=== PATIENT | male | born 1970 | race Caucasian/White ===

== ENCOUNTER 2018-09-14 22:08 | Observation (INO) | payer OTHER ==
[2018-09-14] MEDS ORDERED: fentaNYL 100 MCG/2 ML INJ IVP ONE (22:14)
[2018-09-14] MEDS ORDERED: TDAP ADULT 0.5 ML INJ (BOOSTRIX) IM ONE (22:14)
[2018-09-14] MEDS ORDERED: ONDANSETRON 4 MG/2 ML VIAL IVP ONE (22:14)
[2018-09-14] MEDS ORDERED: ceFAZolin 2 GM/DEXTROSE 100 ML IV ONE (22:15)
[2018-09-14] MEDS ORDERED: fentaNYL 100 MCG/2 ML INJ ONE (22:15)
--- NOTE | 2018-09-14 22:18 | EDPHY ---
H & P Time Seen by Provider: 09/14/18 22:16 HPI/ROS: HPI CHIEF COMPLAINT: Open tib-fib fracture. LTA HISTORY OF PRESENT ILLNESS: 48-year-old male, presents emergency room as a limited trauma activation. Patient had alcohol to drink this evening he tripped and slipped and fell down the bottom aspect of the stairs states he fell down 6 stairs. Did not strike his head he denies any head or neck pain he presents emergency room with an obvious open right tib-fib fracture. He denies any significant pain at this time. Received 100 mcg IV fentanyl prior to arrival. He arrives to EMS GCS 15, alert or x4, no acute distress denies any complaints except some mild right lower tib-fib pain. Patient denies any chest pain or shortness of breath, denies headache, denies neck pain, denies focal numbness or tingling. Past Medical History: No significant medical history Past Surgical History: No significant surgical history Social History: Visiting from [facility] Family History: Noncontributory ROS REVIEW OF SYSTEMS: 10 Systems were reviewed and negative with the exception of the elements mentioned in the history of present illness. Exam Constitutional appears well nontoxic no acute distress, GCS 15 triage nursing summary reviewed, vital signs reviewed, awake/alert. Eyes normal conjunctivae and sclera, EOMI, PERRLA. HENT head and neck atraumatic, normal inspection, atraumatic, moist mucus membranes, no epistaxis, neck supple/ no meningismus, no raccoon eyes. Respiratory clear to auscultation bilaterally, normal breath sounds, no respiratory distress, no wheezing. Cardiovascular rate normal, regular rhythm, no murmur, no edema, distal pulses normal. Gastrointestinal soft, non-tender, no rebound, no guarding, normal bowel sounds, no distension, no pulsatile mass. Genitourinary no CVA tenderness. Musculoskeletal : Right lower extremity: Obvious open tib-fib fracture distal aspect. Delayed cap refilly. Cooler foot, but still perfusing not dusky. 1+DP. no midline vertebral tenderness, no calf swelling, no tenderness of extremities , no meningismus, good pulses, neurovascularly intact. Skin pink, warm, & dry, no rash, skin atraumatic. Neurologic awake, alert and oriented x 3, AAOx3, moves all 4 extremities equally, motor intact, sensory intact, CN II-XII intact, normal cerebellar, normal vision, normal speech. Psychiatric normal mood/affect. Heme/Lymph/Immune no lymphadenopathy. Differential Diagnosis: Includes but is not limited to in a particular order open tib-fib, mechanical trip and fall, compartment syndrome, soft tissue injury Medical Decision Making: Plan for this patient x-ray right tib-fib, Ancef, tetanus, fentanyl, IV fluids, type and screen, blood work, chest x-ray. Re-evaluation: Spoke with Dr. Cobos at 10:20 p.m. Open tib-fib fracture on the right. He will come and see the patient immediately. Plan to go the OR. X-rays reviewed. Chest x-ray unremarkable X-ray of the right tib-fib shows spiral distal facture, proximal fibula fracture. Plan for patient to go the OR. Hold Orthopedics as been consult. IV Ancef ordered. IV Dilaudid for pain control Tetanus updated. Source: Patient, EMS Constitutional: Initial Vital Signs Temperature (C) 37.0 C 09/14/18 22:11 Heart Rate 88 09/14/18 22:11 Respiratory Rate 18 09/14/18 22:11 Blood Pressure 172/91 H 09/14/18 22:11 O2 Sat (%) 99 09/14/18 22:11 O2 Delivery Mode Nasal Cannula O2 (L/minute) 2 Allergies/Adverse Reactions: No Known Allergies Allergy (Verified 09/15/18 09:55) Home Medications: Medication Instructions Recorded NK [No Known Home Meds] 09/14/18 Enoxaparin [Lovenox 40 MG (*)] 40 mg SC DAILY 7 Days #7 syr 09/15/18 Hydrocodone/APAP 5/325 [[place]akeside 1 - 2 tab PO Q3HRS PRN #20 tab 09/15/18 5/325 (*)] oxyCODONE/APAP 5/325 [Percocet 1 - 2 tab PO Q3HRS PRN #20 tab 09/15/18 5/325 (*)] Medical Decision Making - Data Points Laboratory Results: Laboratory Results 09/14/18 22:40 09/14/18 22:40 Medications Given: Discontinued Medications Acetaminophen (Tylenol) 325 - 650 mg PO Q4HRS PRN PRN Reason: Pain, Mild/Fever, Can Take PO Stop: 03/14/19 02:11 Last Admin: 09/15/18 05:35 Dose: 650 mg Hydrocodone Bitart/Acetaminophen ([place]akeside 5/325) 1 - 2 tab PO Q3HRS PRN PRN Reason: Pain, Moderate Stop: 09/25/18 02:11 Last Admin: 09/15/18 16:12 Dose: 2 tab Bacitracin (Bacitracin Syringe) Confirm Administered Dose 450,000 units IRR .STK -MED ONE Stop: 09/15/18 00:47 Last Admin: 09/15/18 01:23 Dose: 150,000 units Diphtheria/Tetanus/Acell Pertussis (Boostrix) 0.5 ml IM .ONCE ONE Stop: 09/14/18 22:15 Last Admin: 09/14/18 22:30 Dose: 0.5 ml Enoxaparin Sodium (Lovenox) 40 mg SC DAILY [facility] Stop: 03/14/19 08:59 Last Admin: 09/15/18 13:43 Dose: 40 mg Fentanyl (Sublimaze) 100 mcg IVP EDNOW ONE Stop: 09/14/18 22:15 Last Admin: 09/14/18 22:15 Dose: 100 mcg Hydromorphone HCl (Dilaudid) 0.5 mg IVP EDNOW ONE Stop: 09/14/18 23:23 Last Admin: 09/14/18 23:23 Dose: 0.5 mg Cefazolin Sodium/Dextrose (Ancef) 100 mls @ 200 mls/hr IV EDNOW ONE PRN Reason: Protocol Stop: 09/14/18 22:44 Last Admin: 09/14/18 22:30 Dose: 100 mls Cefazolin Sodium/Dextrose (Ancef 1 Gm (Premix)) 50 mls @ 200 mls/hr IV Q8HRS DWIGHT PRN Reason: Protocol Stop: 09/15/18 14:14 Last Admin: 09/15/18 13:48 Dose: 50 mls Potassium Chloride/Dextrose/Sod Cl (D5w 1/2 Ns W/ 20 Kcl/L) 1,000 mls @ 125 mls /hr IV CONT DWIGHT Stop: 03/14/19 02:14 Last Admin: 09/15/18 03:27 Dose: 1,000 mls Ondansetron HCl (Zofran) 4 mg IVP EDNOW ONE Stop: 09/14/18 22:15 Last Admin: 09/14/18 22:30 Dose: 4 mg Departure - Departure Disposition: [facility] Inpatient Acute Clinical Impression: Tibia and fibula open fracture, right Qualifiers: Encounter type: initial encounter Open fracture type: open type I or II Qualified Code(s): S82.201B - Unspecified fracture of shaft of right tibia, initial encounter for open fracture type I or II; S82.401B - Unspecified fracture of shaft of right fibula, initial encounter for open fracture type I or II; S82.401B - Unspecified fracture of shaft of right fibula, initial encounter for open fracture type I or II Condition: Good
[2018-09-14 22:54] LABS: PLATELET COUNT 183 10^3/uL (150-400)
[2018-09-14 23:03] LABS: INR 1.01 (0.83-1.16); PROTIME(PATIENT) 13.5 SEC (12.0-15.0)
[2018-09-14] MEDS ORDERED: HYDROmorphONE/DILAUDID 1 MG/ML INJ ONE (23:20)
[2018-09-14] MEDS ORDERED: HYDROmorphONE/DILAUDID 1 MG/ML INJ IVP ONE (23:22)
--- NOTE | 2018-09-14 23:39 | PDGENHP ---
History and Physical History and Physical: spoke with ED spoke with OR films reviewed open tibia fx plan for washout and IM nail
--- NOTE | 2018-09-14 23:58 | PDANEPAE ---
ANE Past Medical History - Cardiovascular History Hx Hypertension: No Hx Arrhythmias: No Hx Chest Pain: No Hx Coronary Artery / Peripheral Vascular Disease: No Hx CHF / Valvular Disease: No Hx Palpitations: No - Pulmonary History Hx COPD: No Hx Asthma/Reactive Airway Disease: No Hx Recent Upper Respiratory Infection: No Hx Oxygen in Use at Home: No Hx Sleep Apnea: No - Endocrine History Hx Diabetes: No Hypothyroid: No Hyperthyroid: No Obesity: mild ANE Review of Systems Review of Systems: ANE Patient History - Allergies Allergies/Adverse Reactions: No Known Allergies Allergy (Unverified 09/14/18 22:32) - Home Medications Home medications: none Home Medications: NK [No Known Home Meds] 09/14/18 [Last Taken Unknown] - Anes Hx Anes Hx: no prior problems - Smoking Hx Smoking Status: Light smoker - Alcohol Use Alcohol Use: Occasionally ANE Labs/Vital Signs - Labs Result Diagrams: 09/14/18 22:40 09/14/18 22:40 - Vital Signs Blood Pressure: 135/84 Heart Rate: 77 Respiratory Rate: 16 O2 Sat (%): 93 Height: 190.5 cm Weight: 93 kg ANE Physical Exam - Airway Neck exam: FROM Mallampati Score: Class 2 Mouth exam: normal dental/mouth exam - Pulmonary Pulmonary: no respiratory distress, no rales or rhonchi, clear to auscultation - Cardiovascular Cardiovascular: regular rate and rhythym, no murmur, rub, or gallop - ASA Status ASA Status: II, E ANE Anesthesia Plan Anesthesia Plan: general endotracheal anesthesia
[2018-09-15] MEDS ORDERED: PROPOFOL 200 MG/20 ML VIAL ONE (00:02)
[2018-09-15] MEDS ORDERED: LIDOCAINE 2% 5 ML SDV ONE ×2 (00:04→01:01)
[2018-09-15] MEDS ORDERED: DEXAMETHASONE 4 MG/ML VIAL ONE ×2 (00:04)
[2018-09-15] MEDS ORDERED: ONDANSETRON 4 MG/2 ML VIAL ONE (00:04)
[2018-09-15] MEDS ORDERED: ROCURONIUM 50 MG/5 ML VIAL ONE (00:04)
[2018-09-15] MEDS ORDERED: GLYCOPYRROLATE 0.2 MG/1 ML VIAL ONE ×2 (00:04→01:52)
[2018-09-15] MEDS ORDERED: BACITRACIN 50,000 UNITS/10 ML SYR IRR ONE (00:46)
[2018-09-15] MEDS ORDERED: ACETAMINOPHEN 500 MG TAB PO PRN (01:03)
[2018-09-15] MEDS ORDERED: fentaNYL 100 MCG/2 ML INJ IVP PRN (01:03)
[2018-09-15] MEDS ORDERED: NALOXONE HCL 0.4 MG/ML INJ IVP PRN (01:03)
[2018-09-15] MEDS ORDERED: DIAZEPAM 5 MG/ML 1 ML SYR IVP PRN (01:03)
[2018-09-15] MEDS ORDERED: HYDROCODONE/APAP 5/325 TAB PO PRN (01:03)
[2018-09-15] MEDS ORDERED: oxyCODONE IR 5 MG TAB PO PRN (01:03)
[2018-09-15] MEDS ORDERED: ONDANSETRON 4 MG/2 ML VIAL IVP PRN (01:03)
[2018-09-15] MEDS ORDERED: PROMETHAZINE HCL 25 MG/ML INJ IVP PRN (01:03)
[2018-09-15] MEDS ORDERED: LR 500 ML IV PRN (01:03)
[2018-09-15] MEDS ORDERED: MEPERIDINE 25 MG/0.5 ML AMP IVP PRN (01:03)
[2018-09-15] MEDS ORDERED: KETAMINE 200 MG/20 ML VIAL ONE (01:16)
--- NOTE | 2018-09-15 02:09 | POSTANESTH ---
Post Anesthetic Evaluation Cardiovascular Status: Similar to Pre-Op Cond Respiratory Status: Normal, Stable, Similar to Pre-op Cond. Level of Consciousness/Mental Status: Can Participate in Eval, Moderately Sleepy Pain Control: Adequate, Prn Tx Ordered Nausea/Vomiting Control: Adequate, Prn Tx Ordered Complications Possibly Related to Anesthesia: None Noted
[2018-09-15] MEDS ORDERED: ACETAMINOPHEN 325 MG TAB PO PRN (02:12)
[2018-09-15] MEDS ORDERED: OXYCODONE/APAP 5/325 TAB PO PRN (02:12)
[2018-09-15] MEDS ORDERED: D5W 1/2 NS W/ 20 KCl/L 1,000 ML IV SCH (02:15)
--- NOTE | 2018-09-15 02:25 | GHP ---
DATE OF ADMISSION: 09/14/2018 CHIEF COMPLAINT: Open right tibia fracture. 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 He leaves for [facility] on Friday. He sli pped at a friend's house and twisted his right leg. He was brought in by ambulance. Open tib-fib fr acture. Isolated injury. He describes having a leg length discrepancy as a kid, tibia vera as a kid . He does wear heel lift and orthotic in his right shoe. He loves to golf and recreate, and [employer] ski. Please see details of ER H and P. PERTINENT ORTHOPEDIC EXAMINATION: Reveals a well-appearing gentleman. BILATERAL UPPER EXTREMITIES: Nontraumatic. ABDOMEN: Soft. Pelvis stable. LEFT LOWER EXTREMITY: Nontraumatic. RIGHT LOWER EXT REMITY: Externally rotated. There is a 1 x 1 cm hole with exposed bone anteromedially. He had good sensation distally and good pulses distally and his feet were warm. Imaging showed a proximal fibular fracture, spiral component into a spiral component, distal tibia fr acture. ASSESSMENT: Open tib-fib fracture. PLAN: Irrigation, debridement, and definitive fixation. Family was at the bedside. /[id number]/MODL
--- NOTE | 2018-09-15 04:45 | GOP ---
DATE OF OPERATION: 09/15/2018 SURGEON: Domi Cobos MD PREOPERATIVE DIAGNOSIS: Open tibia/fibula fracture. POSTOPERATIVE DIAGNOSIS: Open tibia/fibula fracture. PROCEDURE PERFORMED: 1. Irrigation, debridement of open wound. 2. Intramedullary nail, right tibia. FINDINGS: ESTIMATED BLOOD LOSS: 150 cc. INDICATIONS: The patient is a 48-year-old male who sustained an open tib-fib fracture. Visiting [place]. Please see details of the H and P. DESCRIPTION OF PROCEDURE: Patient identified in the preoperative holding area. Friends and family w ere at the bedside. Right leg was identified. Patient brought to the operating room, general anesthesia on the gurney, placed on a flat Lefty tab le. The right lower extremity had a greater trochanteric bump used. We had chlorhexidine scrub and then a Betadine prep. No tourniquet was used. Right lower extremity was prepped and draped in the u sual sterile fashion. Surgical time-out was performed. We copiously washed out the wound with 6 L of LR and then 3 L of polymyxin/bacitracin LR for a total of 9 L. We proceeded then to do the IM nail. We made a medial parapatellar incision. A separate layer of pa ratenon. Went medial to the patellar tendon. Used a guide pin and over-reamer to find the anterior tibial plateau. We placed a slight curved ball tip past the fracture. It was easily reduced with sl ight traction. We went from an 8 to a 10-1/2 reamer and then placed a 9 mm nail with 1 proximal inte rlock and 2 distal interlocks. We made sure that the center of the tibial tubercle was lined up prop erly with the 2nd metatarsal. The wounds were washed out with another 500 cc of LR. Monocryl for paratenon closure, Monocryl for s ubcutaneous closure and kim. A well-padded sugar-tong splint was placed. TIME: 1 a.m. COMPLICATIONS: None. DISPOSITION: Extubated, to PACU in stable condition. TOURNIQUET TIME: Zero. /[id number]/MODL
[2018-09-15] MEDS ORDERED: ENOXAPARIN 40 MG/0.4 ML SYR SC SCH (09:00)
[2018-09-15] MEDS ORDERED: POLYETHYLENE GLYCOL 3350 17 GM PKT PO PRN (09:54)
[2018-09-15] MEDS ORDERED: BISACODYL 10 MG SUPP PR PRN (09:54)
[2018-09-15] MEDS ORDERED: LACTULOSE 20 GM/30 ML UDCUP PO PRN (09:54)
[2018-09-15] MEDS ORDERED: MAGNESIUM HYDROXIDE 30 ML UDCUP PO PRN (09:54)
--- NOTE | 2018-09-15 10:20 | SOAPPROG ---
SOAP Progress Note Assessment/Plan: Assessment: doing well Plan: 09/15/18 10:17 home today pain pills abx lovenox fu in clinic fly home to [facility] on Friday . anticipate Subjective: POD 1. at bedside. feeling well Objective: Vital Signs Temp Pulse Resp BP Pulse Ox 37.2 C 77 12 115/67 96 09/15/18 07:53 09/15/18 07:53 09/15/18 07:53 09/15/18 07:53 09/15/18 07:53 09/14/18 09/15/18 09/16/18 05:59 05:59 05:59 Intake Total 3225 Output Total 150 600 Balance 3075 -600 PT 13.5 SEC (12.0-15.0) 09/14/18 22:40 INR 1.01 (0.83-1.16) 09/14/18 22:40 NVI splint intact mobile toes abd soft ICD10 Worksheet Patient Problems: Problems Problem Status Onset Tibia and fibula open fracture, right Acute - ICD10 Problem Qualifiers (1) Tibia and fibula open fracture, right
[2018-09-15 12:27] VITALS: BP 138/74
[2018-09-15] MEDS: HYDROCODONE/APAP 5/325 TAB PO PRN ×3 (13:40→16:12)
--- NOTE | 2018-09-15 14:49 | ASMTCMCOM ---
CM Note CM Note Notes: Pt medically stable for d/c, to return soon to [facility]. PT rec home. No CM d/c needs identified. Date Signed: 09/15/2018 02:49 PM Electronically Signed By:FERNANDA Garces
[2018-09-15] MEDS ORDERED: SENNOSIDES/DOCUSATE SODIUM TAB PO SCH (21:00)
== END 2018-09-15 16:16 | disposition home or self-care (01) ==
LOC: F3N 09-15 02:42
PROVIDERS: ADMIT Orthopaedic Surgery; ATTEND Orthopaedic Surgery
PROC: BQ1DZZZ Fluoroscopy of Right Lower Leg (ICD-10-PCS; principal; 2018-09-14)
PROC: 0JCN0ZZ Extirpation of Matter from Right Lower Leg Subcutaneous Tissue and Fascia, Open Approach (ICD-10-PCS; principal; 2018-09-14)
PROC: 0QSG06Z Reposition Right Tibia with Intramedullary Internal Fixation Device, Open Approach (ICD-10-PCS; principal; 2018-09-14)
DX: S82.241B Displaced spiral fracture of shaft of right tibia, initial encounter for open fracture type I or II (principal); S82.431B Displaced oblique fracture of shaft of right fibula, initial encounter for open fracture type I or II; W10.8XXA Fall (on) (from) other stairs and steps, initial encounter; Y92.019 Unspecified place in single-family (private) house as the place of occurrence of the external cause; M21.751 Unequal limb length (acquired), right femur; Z23 Encounter for immunization
CPT/HCPCS: 11010; 27759; 71045; 73590; 90471; 96365; 96372; 96375; 96376; 97161; 97165; 99285; C1769; G0378; C1713; G0480; J0690; J1100; J1170; J1650; J2270; J2405; J2704; J3010